=== PATIENT | female | born 1980 | race Caucasian/White ===

== ENCOUNTER 2019-07-24 10:21 | Emergency (ER) | payer OTHER ==
[~2019-07-24] VITALS: Ht 177.8 cm; Wt 102.1 kg
[2019-07-24 10:21] VITALS: BP 132/75
[2019-07-24] MEDS ORDERED: DOCU-109 PO (10:46)
[2019-07-24] MEDS ORDERED: METH4TAB2 PO (10:46)
[2019-07-24] MEDS ORDERED: HYDR-3165 PO (10:46)
[2019-07-24] MEDS ORDERED: KETOROLAC 30 MG/ML VIAL. ONE (10:46)
[2019-07-24 10:51] LABS: BILIRUBIN,URINE NEG (NEG); CLARITY,URINE HAZY; COLOR,URINE YELLOW; GLUCOSE,URINE NEG (NEG)
[2019-07-24 10:52] LABS: BACTERIA,URINE MOD /HPF (0-FEW); NITRITE,URINE NEG (NEG); RBC,URINE 0 /HPF (0-2); SQUAMOUS EPITHELIAL CELL,UR MANY /LPF; UROBILINOGEN,URINE 0.2 mg/dL (0.2 mg/dL); WBC,URINE RARE /HPF (0-4)
[2019-07-24] MEDS ORDERED: KETOROLAC 30 MG/ML VIAL. IM ONE (11:00)
--- NOTE | 2019-07-24 12:44 | PHYS DOC ---
Past History Past Medical History: No Pertinent History Past Surgical History: No Surgical History Alcohol Use: Occasionally Drug Use: None Adult General Chief Complaint Chief Complaint: BACK PAIN OR INJURY [facility] HPI Patient is a 38-year-old female presenting with back pain. Onset she said she had some mild soreness in her back she cracked it like the way that to a chiropractor might do herself but she said since then the pain was increasing it's the sharp shooting pain from the right low back down the right buttock to the right mid thigh. No bowel bladder incontinence no numbness no weakness noted no abdominal pain no vomiting she does not usually have back pain Review of Systems Review of Systems Constitutional: Denies fever or chills [] Eyes: Denies change in visual acuity, redness, or eye pain [] Cardiovascular: No additional information not addressed in HPI [] GI: Denies abdominal pain, nausea, vomiting, bloody stools or diarrhea [] Integument: Denies rash or skin lesions [] Neurologic: Denies headache, focal weakness or sensory changes [] Endocrine: Denies polyuria or polydipsia [] All other systems were reviewed and found to be within normal limits, except as documented in this note. Current Medications Current Medications Current Medications Medications (Trade) Dose Ordered Sig/Nitin Start Time Stop Time Status Last Admin Dose Admin Ketorolac Tromethamine (Toradol 30mg Vial) 30 mg STK-MED ONCE 07/24/19 10:46 07/24/19 10:46 DC Allergies Allergies Allergies Coded Allergies Type Severity Reaction Last Updated Verified Penicillins Allergy Unknown 07/24/19 Yes Physical Exam Physical Exam Constitutional: Well developed, well nourished, no acute distress, non-toxic appearance. [] HENT: Normocephalic, atraumatic, bilateral external ears normal, oropharynx moist, no oral exudates, nose normal. [] Eyes: PERRLA, EOMI, conjunctiva normal, no discharge. [] Neck: Normal range of motion, no tenderness, supple, no stridor. [] Abdomen: Bowel sounds normal, soft, no tenderness, no masses, no pulsatile masses. [] Skin: Warm, dry, no erythema, no rash. [] Back: Reproducible right low back pain noted tenderness in the right buttock as well. Extremities: No tenderness, no cyanosis, no clubbing, ROM intact, no edema. [] Neurologic: Alert and oriented X 3, normal motor function, normal sensory function, no focal deficits noted. [] Psychologic: Affect normal, judgement normal, mood normal. [] Current Patient Data Vital Signs Vital Signs Date Time Temp Pulse Resp B/P (MAP) Pulse Ox O2 Delivery O2 Flow Rate FiO2 07/24/19 10:21 98.2 77 16 97 Room Air Lab Results Laboratory Tests Test 07/24/19 10:31 07/24/19 10:51 Urine Collection Type Unknown Urine Color Yellow Urine Clarity Hazy Urine pH 7.0 Urine Specific Crane 1.020 Urine Protein Neg (NEG-TRACE) Urine Glucose (UA) Neg mg/dL (NEG) Urine Ketones (Stick) Neg mg/dL (NEG) Urine Blood Neg (NEG) Urine Nitrite Neg (NEG) Urine Bilirubin Neg (NEG) Urine Urobilinogen Dipstick 0.2 mg/dL (0.2 mg/dL) Urine Leukocyte Esterase Neg (NEG) Urine RBC 0 /HPF (0-2) Urine WBC Rare /HPF (0-4) Urine Squamous Epithelial Cells Many /LPF Urine Bacteria Mod /HPF (0-FEW) POC Urine HCG, Qualitative hcg negative (Negative) EKG EKG [] Radiology/Procedures Radiology/Procedures [] Course & Med Decision Making Course & Med Decision Making Pertinent Labs and Imaging studies reviewed. (See chart for details) []Sounds most likely probably sciatica patient is neuro intact distally no signs of cauda equina recommended anti-inflammatory and pain medication with return precautions discussed no blunt trauma no x-rays indicated Dragon Disclaimer Dragon Disclaimer This electronic medical record was generated, in whole or in part, using a voice recognition dictation system. Departure Departure: Impression: Primary Impression: Back pain Disposition: HOME, SELF-CARE Condition: STABLE Patient Instructions: Back Pain, Adult, [id number] Scripts Docusate Sodium (COLACE) 100 Mg Capsule 1 CAP PO BID for constipation, #30 CAP Prov: LEONARDA MURILLO MD 07/24/19 Hydrocodone Bit/Acetaminophen (NORCO 5-325 TABLET) 1 Each Tablet 1-2 TAB PO Q4-6HRS PRN for COUGH, #15 TAB Prov: LEONARDA MURILLO MD 07/24/19 Methylprednisolone (MEDROL) 4 Mg Tab.ds.pk 1 PKG PO UD for back pain, #1 PKG Prov: LEONARDA MURILLO MD 07/24/19 LEONARDA MURILLO MD Jul 24, 2019 12:44
== END 2019-07-24 10:55 | disposition home or self-care (01) ==
LOC: ER 10:21
DX: M54.5 Low back pain (principal); Z88.0 Allergy status to penicillin
CPT/HCPCS: 81001; 81025; 87086; 96372; 99284; J1885

== ENCOUNTER 2020-11-05 14:54 | Emergency (ER) | payer OTHER ==
[~2020-11-05] VITALS: Ht 177.8 cm; Wt 98.9 kg
[~2020-11-05 14:54] MED LIST: DOCU-109 PO; HYDR-3165 PO; METH4TAB2 PO
[2020-11-05 15:00] VITALS: BP 135/87
--- NOTE | 2020-11-05 15:34 | PHYS DOC ---
Past History Past Medical History: No Pertinent History (RICHARD DE LA CRUZ APRN) Past Surgical History: No Surgical History (RICHARD DE LA CRUZ APRN) Alcohol Use: Occasionally Drug Use: None (RICHARD DE LA CRUZ APRN) General Adult EDM: Chief Complaint: PAIN ON URINATION HPI: HPI: Patient is a 40-year-old female who presents with pain with urination. Patient states about metacarpus morning she started having pain. Patient reports urgency and spasms and has noticed blood in her urine. Denies nausea, vomiting, diarrhea. Denies fever or flank pain. (RICHARD DE LA CRUZ APRN) Review of Systems: Review of Systems: Constitutional: Denies fever or chills Eyes: Denies change in visual acuity HENT: Denies nasal congestion or sore throat Respiratory: Denies cough or shortness of breath Cardiovascular: Denies chest pain or edema GI: Denies abdominal pain, nausea, vomiting, bloody stools or diarrhea : Reports frequency, blood in urine, dysuria Musculoskeletal: Denies back pain or joint pain Integument: Denies rash Neurologic: Denies headache, focal weakness or sensory changes Endocrine: Denies polyuria or polydipsia Lymphatic: Denies swollen glands Psychiatric: Denies depression or anxiety (RICHARD DE LA CRUZ APRN) Allergies: Allergies: Allergies Coded Allergies Type Severity Reaction Last Updated Verified Penicillins Allergy Unknown 07/24/19 Yes (RICHARD DE LA CRUZ APRN) Physical Exam: PE: Constitutional: Well developed, well nourished, no acute distress, non-toxic appearance. [] HENT: Normocephalic, atraumatic, bilateral external ears normal, oropharynx moist, no oral exudates, nose normal. [] Eyes: PERRLA, EOMI, conjunctiva normal, no discharge. [] Neck: Normal range of motion, no tenderness, supple, no stridor. [] Cardiovascular:Heart rate regular rhythm, no murmur [] Lungs & Thorax: Bilateral breath sounds clear to auscultation [] Abdomen: Bowel sounds normal, soft, no tenderness, no masses, no pulsatile masses. [] Skin: Warm, dry, no erythema, no rash. [] Back: No tenderness, no CVA tenderness. [] Extremities: No tenderness, no cyanosis, no clubbing, ROM intact, no edema. [] Neurologic: Alert and oriented X 3, normal motor function, normal sensory function, no focal deficits noted. [] Psychologic: Affect normal, judgement normal, mood normal. [] (RICHARD DE LA CRUZ APRN) Current Patient Data: Labs: Laboratory Tests Test 11/05/20 15:10 POC Urine HCG, Qualitative hcg negative (Negative) (RICHARD DE LA CRUZ APRN) EKG: EKG: [] (RICHARD DE LA CRUZ APRN) Radiology/Procedures: Radiology/Procedures: [] (RICHARD DE LA CRUZ APRN) Heart Score: Risk Factors: Risk Factors: DM, Current or recent (<one month) smoker, HTN, HLP, family history of CAD, obesity. Risk Scores: Score 0 - 3: 2.5% MACE over next 6 weeks - Discharge Home Score 4 - 6: 20.3% MACE over next 6 weeks - Admit for Clinical Observation Score 7 - 10: 72.7% MACE over next 6 weeks - Early Invasive Strategies (RICHARD DE LA CRUZ APRN) Course & Med Decision Making: Course & Med Decision Making Pertinent Labs and Imaging studies reviewed. (See chart for details) UA ordered [] (RICHARD DE LA CRUZ APRN) Course & Med Decision Making I have participated in the care of this patient and I have reviewed and agree with all pertinent clinical information above including history, exam, and recommendations. (NOEMI MAHONEY MD) Abhion Disclaimer: Kennedi Disclaimer: This electronic medical record was generated, in whole or in part, using a voice recognition dictation system. (RICHARD DE LA CRUZ APRN) Departure Departure: Impression: Primary Impression: Urinary tract infection Disposition: 01 DC HOME SELF CARE/HOMELESS Condition: STABLE Referrals: ADRYAN CASTANO PA-C (PCP) Patient Instructions: Urinary Tract Infection, [id number] Additional Instructions: EMERGENCY DEPARTMENT GENERAL DISCHARGE INSTRUCTIONS Thank you for coming to [facility] (ED) today and trusting us with you care. We trust that you had a positivie experience in our Emergency Department. If you wish to speak to the department management, you may call the director at [phone]. YOUR FOLLOW UP INSTRUCTIONS ARE FOLLOWS: 1. Do you have a private Doctor? If you do not have a private doctor, please ask for a resource list of physicians or clinics that may be able to assist you with follow up care. 2. The Emergency Physician has interpreted your x-rays. The X-Ray specialist will also review them. If there is a change in the findings, you will be notified in 48 hours when at all possible. 3. A lab test or culture has been done, your results will be reviewed and you will be notified if you need a change in treatment. ADDITIONAL INSTRUCTIONS AND INFORMATION: 1. Your care today has been supervised by a physician who is specially trained in emergency care. Many problems require more than one evaluation for a complete diagnosis and treatment. We recommend that you schedule your follow up appointment as recommended to ensure complete treatment of you illness or injury. If you are unable to obtain follow up care and continue to have a problem, or if your condition worsens, we recommend that you return to the ED. 2. We are not able to safely determine your condition over the phone nor are we able to give sound medical advice over the phone. For these safety reasons, if you call for medical advice we will ask you to come to the ED for further evaluation. 3. If you have any questions regarding these discharge instructions please call the ED at [phone]. SAFETY INFORMATION: In the interest of safety, wellness, and injury prevention; we encourage you to wear your sealbelt, if you smoke; quite smoking, and we encourage family to use a protective helmet for bicycling and other sporting events that present an increased risk for head injury. IF YOUR SYMPTOMS WORSEN OR NEW SYMPTOMS DEVELOP, OR YOU HAVE CONCERNS ABOUT YOUR CONDITION; OR IF YOUR CONDITION WORSENS WHILE YOU ARE WAITING FOR YOUR FOLLOW UP APPOINTMENT; EITHER CONTACT YOUR PRIMARY CARE DOCTOR, THE PHYSICIAN WHOSE NAME AND NUMBER YOU WERE GIVEN, OR RETURN TO THE ED IMMEDIATELY. Scripts Phenazopyridine Hcl (PYRIDIUM) 200 Mg Tablet 1 TAB PO TID for urinary discomfort for 3 Days, #9 TAB 0 Refills Prov: RICHARD DE LA CRUZ APRN 11/05/20 Cephalexin (KEFLEX) 500 Mg Capsule 500 MG PO BID for urinary tract infection for 7 Days, #14 CAP Prov: RICHARD DE LA CRUZ APRN 11/05/20 RICHARD DE LA CRUZ APRN Nov 05, 2020 15:34 NOEMI MAHONEY MD Nov 06, 2020 13:25
[2020-11-05 15:47] LABS: BILIRUBIN,URINE NEG (NEG); CLARITY,URINE HAZY; COLOR,URINE PINK; GLUCOSE,URINE NEG (NEG); UROBILINOGEN,URINE 0.2 mg/dL (0.2 mg/dL)
[2020-11-05 15:48] LABS: BACTERIA,URINE 0 /HPF (0-FEW); NITRITE,URINE NEG (NEG); RBC,URINE >40 /HPF (0-2); WBC,URINE 20-40 /HPF (0-4)
[2020-11-05] MEDS ORDERED: DICYCLOMINE 20 MG/2 ML VIAL. IM ONE (16:00)
[2020-11-05] MEDS ORDERED: CEPH-264 PO (16:03)
[2020-11-05] MEDS ORDERED: PHEN-318 PO (16:10)
== END 2020-11-05 16:18 | disposition home or self-care (01) ==
LOC: ER 14:54
DX: N39.0 Urinary tract infection, site not specified (principal); R31.9 Hematuria, unspecified; Z88.0 Allergy status to penicillin
CPT/HCPCS: 81001; 81025; 87086; 96372; 99283; J0500